=== PATIENT | female | born 1995 | race Caucasian/White ===

== ENCOUNTER 2019-02-24 21:23 | Emergency (ER) | payer OTHER ==
[~2019-02-24] VITALS: Ht 154.9 cm; Wt 83.9 kg
[2019-02-24 21:32] VITALS: BP 148/73
[2019-02-24] MEDS ORDERED: AMOXIL 875 MG875 M1 PO (21:58)
[2019-02-24] MEDS ORDERED: NORCO 5-325 TA1 EACH PO (21:58)
== END 2019-02-24 22:13 | disposition home or self-care (01) ==
LOC: M.ERS 21:23
DX: K02.9 Dental caries, unspecified (principal); K04.7 Periapical abscess without sinus; F17.200 Nicotine dependence, unspecified, uncomplicated; Z91.030 Bee allergy status; Z91.013 Allergy to seafood